=== PATIENT | female | born 1970 | race Caucasian/White ===

== ENCOUNTER → 2016-04-22 | Outpatient (CLI) | payer BC ==
[~2016-04-22] MED LIST: AMLODIPINE BESYL5 MG PO; HYDROCHLOROTHIA25 M1 PO; LEVAQUIN500 M2 PO; LOSARTAN POTASS25 M1 PO; NORCO 10-325 T1 EACH PO; NORETHINDRONE0.35 M1 PO; PRAVASTATIN SOD20 MG PO
[2016-04-22 10:25] LABS: BUN 14 mg/dl (7-24); CARBON DIOXIDE 26 mmol/L (21-32); CHLORIDE 103 mmol/L (98-107); CHOLESTEROL 206 mg/dL (<200); EST GLOM FILT AFRICAN AMERICAN > 60 ml/min; GLUCOSE 105 mg/dL (65-99); HDL CHOLESTEROL 37 mg/dl (40-60); LDL CHOLESTEROL 101 mg/dL (9-159); POTASSIUM 3.8 mmol/L (3.5-5.1); SODIUM 139 mmol/L (136-145); TRIGLYCERIDES 338 mg/dl (<150); VLDL CHOLESTEROL 68 mg/dL (6-40)
== END | disposition home or self-care (01) ==
LOC: LAB 09:35
PROVIDERS: Internal Medicine
DX: I10 Essential (primary) hypertension (principal); E78.5 Hyperlipidemia, unspecified